=== PATIENT | female | born 1955 | race Caucasian/White ===

== ENCOUNTER 2017-01-25 13:40 | Emergency (ER) | payer SELFPAY ==
[2017-01-25] MEDS ORDERED: IPRATROPIUM/ALBUTEROL SULFATE 3 ML NEB NEB ONE (14:01)
[2017-01-25 14:03] VITALS: TEMP 97.4
--- NOTE | 2017-01-25 15:21 | DI ---
PA /LATERAL CHEST X-RAY, 01/25/2017 2:01 PM : Clinical History: Cough. Previous Exam: None at this facility. There is no acute soft tissue or bony abnormality. Heart size is normal. Lungs are clear. Mediastinal structures are normal. There are no pulmonary nodules. Reading: Normal chest x-ray.
[2017-01-25] MEDS ORDERED: ALBUTEROL SULFATE 5 MG/ML-20 ML BOTTLE NEB ONE (15:37)
[2017-01-25] MEDS ORDERED: ALBUTEROL SULFATE 2.5 MG/3 ML NEB ONE (15:39)
[2017-01-25 16:29] VITALS: RESP 18
--- NOTE | 2017-01-25 20:35 | PDOC ---
Upper Respiratory HPI - General Chief Complaint: Dyspnea Stated Complaint: cough, hoarseness, sore throat Date Seen by Provider: 01/25/17 Time Seen by Provider: 13:45 Source: POSITIVE: Patient Exam Limitations: POSITIVE: No limitations Nurse's Notes Reviewed & Considered: Yes - History of Present Illness Initial Comments: The patient is a 61-year-old female. She states that for the past week, approximately, she has had a mild sore throat. She's had a persistent cough productive of mucoid sputum. Some nasal congestion. She has a history of tobacco abuse her don't life and she smokes a half a pack of cigarettes per day. History of "early COPD". She is not on oxygen at home. She states she has in the past use beta agonist inhalers, but none for the past 4 years. No known fevers or chills. No chest pain. Timing: REPORTS: Constant Duration: <1 week (Approximately one week) Severity: Moderate Quality: REPORTS: Other (Mild sore throat; no chest pain) Context: DENIES: Recent Foreign Travel, Insect Bite, Tick Bite, Multiple Pt's w / Same Sx, Recent Chemotherapy, Other Modifying Factors: improves with: Coughing Associated Symptoms: REPORTS: Sore Throat, Hoarseness, Cough, Productive Cough, Shortness of Breath. DENIES: Fever, Chills, Sweating, Earache, Runny Nose, Sinus Pain, Sinus Drainage, Allergy, Hay Fever, Chest Pain, Bloody Cough, Hurts to Breathe, Headache, Other Similar Symptoms Previously: No Recently seen/treated/hospitalized: No Any Prior Injuries Related to Current Complaint?: No - Patient Home Medications Home Medications: Home Medications Albuterol 17 gm IH Q4H PRN #1 aer.refill 01/25/17 Aspirin [Aspir 81] 81 mg PO DAILY 01/25/17 Azithromycin [Zithromax Tri-Brian] 500 mg PO DAILY #5 tab 01/25/17 - Patient Allergies Allergies/Adverse Reactions: Allergies Allergy/AdvReac Type Severity Reaction Status Date / Time Sulfa (Sulfonamide Allergy HIVES Verified 01/25/17 13:49 Antibiotics) Past Medical History - heen HEENT History: Denies History Cardiovascular History: Denies History Respiratory History: Denies History Gastrointestinal History: Denies History Genitourinary History: Denies History Endocrine History: Denies History Musculoskeletal History: Denies History Prosthesis or Implant: No Neurological History: Denies History Blood Disorders: Denies History Psychiatric History: Denies History Female Reproductive History: Hysterectomy Additional Female Reproductive History: tubal ligation Obstetrical History: Denies History Cancer History: Denies History In Past Year Been Physically Harmed or Verbally Threatened: No History of MDRO: No Tobacco Use: Current Every Day Smoker Alcohol Use: None Substance Use Type: None Previous Surgical History: Yes Type / Date of Surgery: ingrown toenails, cone biopsy, hysterectomy, tubal ligation Anesthesia Reactions: No Malignant Hyperthermia: No Family History of Malignant Hyperthermia: No Significant Family History: Heart disease, Cancer, Lung disease Past Medical History Reviewed: Reviewed - No Changes ROS - Limitations ROS Limitations: No Limitations Constitution: REPORTS: Denies Symptoms Cardiovascular: REPORTS: Denies Cardiac Symptoms Respiratory: REPORTS: Cough Productive (Of mucoid sputum), Wheezing Neurological: REPORTS: Denies Neuro Symptoms Gastrointestinal: REPORTS: Denies GI Symptoms Endocrine: REPORTS: Denies Symptoms Musculoskeletal: REPORTS: Denies MS Symptoms Genitourinary: REPORTS: Denies Symptoms Eyes: REPORTS: Denies Symptoms ENT: REPORTS: Sore Throat Skin: REPORTS: Denies Skin Symptoms Lympathic: REPORTS: Denies Lympathic Symptoms Immunologic: POSITIVE: Denies Symptoms Psychiatric: POSITIVE: Denies Psych Symptoms Upper Respiratory/Fever Exam - General Appearance General Appearance: REPORTS: Alert, Cooperative, No Acute Distress, No Evidence of Trauma - HEENT HEENT: POSITIVE: Head Inspection Nml, Eyes Inspection Nml, Ears Inspection Nml, Nose Inspection Nml, Oral/Dental Inspect. Nml, Pharynx Inspect. Nml, PERRL, EOMI - Neck Neck: REPORTS: Normal Inspection, Supple - Respiratory Respiratory: REPORTS: No Respiratory Distress, No Pleuritic Chest Pain, Speaks Full Sentences, No Pain on Inspiration, Rhonchi. DENIES: Breath Sounds Normal ( Scattered rhonchi), Respiratory Distress, Fatigue, Wheezes, Rales, Prolonged Expirations, Accessory Muscle Use, Retractions, Splinting, Dull on Percussion, Decreased Air Movement, Chest Wall Tenderness, Speaks Broken Sentences, Stridor , Respiratory Failure - Abdomen Abdomen: Soft: (All Quadrants), Normal Bowel Sounds: (All Quadrants), Denies Tenderness: (All Quadrants), No Splenomegaly: (All Quadrants), No Hepatomegaly: (All Quadrants), No Guarding: (All Quadrants), No Rebound: (All Quadrants), No Palpable Pulse: (All Quadrants), No Palpabale Mass: (All Quadrants), No Distention: (All Quadrants), No Rigidity: (All Quadrants) - Cardiovascular Cardiovascular: REPORTS: Regular Rate and Rhythm, Heart Sounds Normal, Equal Pulses, Strong Pulses, No Murmur, No Gallop, No Friction Rub, No JVD Peripheral Pulses: Radial (R): 2+, Radial (L): 2+ - Skin Skin: REPORTS: Intact, Normal For Race, Warm, Dry, No Rash - Extremities Extremity: Non-Tender: (All Extremities), Normal ROM: (All Extremities), Normal Inspection: (All Extremities) - Neurological / Psychological Neurological: POSITIVE: Oriented X3, 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 - Patient's Progress Pain Medication Addressed: POSITIVE: Not Applicable School/Work Release Addressed: POSITIVE: Yes (Work excuse for 2 days given) Re-Examine Time: 15:45 Re-Examine Comment: Clearing of rhonchi with DuoNeb treatment Status: POSITIVE: Improved, Re-Examined Air Movement: Good Antibiotics Given: Yes (Zithromax) Nebulizer Treatment Given:: Yes (DuoNeb) - Consult Counseled: POSITIVE: Patient, RE: Lab Results, RE: Radiology Results, RE: DX, RE : Need for F/U RX Given: Yes (Zithromax and albuterol inhaler) Patient Care Time - Estimated PCT Patient Care Time (In Minutes): 30 Vital Signs - Recent Vital Signs Vital Signs: Vital Signs (Last 8 hours) Temp Pulse Pulse Resp BP Pulse Ox 01/25/17 16:05 80 18 96 01/25/17 13:40 97.4 F 84 16 126/84 94 - VS Reviewed Vital Signs Reviewed: Yes Discharge Clinical Impression: Bronchitis, Pharyngitis Discharge Disposition: Discharged to Home Condition: Fair Prescriptions / Orders: Albuterol 17 gm IH Q4H PRN #1 aer.refill PRN Reason: Wheezing Azithromycin [Zithromax Tri-Brian] 500 mg PO DAILY #5 tab Patient Instructions Given at Discharge: Acute Bronchitis (ED) Additional Instructions: It is very important that you stop smoking. Azithromycin 1 daily for 5 days. Albuterol inhaler, 2 inhalations every 4 hours as necessary. Work excuse for 2 days. Follow-up with your primary care provider. Return here as necessary. Follow Up With: NONE,NONE [Primary Care Provider] - (Instructions as above. Follow-up with your primary care provider. Return here as necessary.)
== END 2017-01-25 16:05 | disposition home or self-care (01) ==
LOC: ER 13:40
DX: J20.9 Acute bronchitis, unspecified (principal); R05 Cough; R06.2 Wheezing; J02.9 Acute pharyngitis, unspecified
CPT/HCPCS: 71020; 87802; 87804; 94640; 99283 ×2; J7620

== ENCOUNTER 2018-02-17 18:33 | Observation (INO) ==
[2018-02-17] MEDS ORDERED: NORMAL SALINE 10 ML SYRINGE FLUSH IVP PRN ×2 (18:46→22:07)
[2018-02-17] MEDS ORDERED: ONDANSETRON 4 MG/2 ML VIAL IVP ONE (18:46)
[2018-02-17] MEDS ORDERED: ASPIRIN 81 MG (BABY) CHEWABLE TABLET PO ONE (18:46)
[2018-02-17] MEDS ORDERED: MORPHINE SULFATE 2 MG/1 ML IVP ONE ×2 (18:46→20:53)
[2018-02-17] MEDS ORDERED: Sodium Chloride 0.9% 1,000 ML PRIMARY IV ONE (18:46)
[2018-02-17 19:04] LABS: BASOPHILS # (AUTO) 0.09 10*3/UL; BASOPHILS % (AUTO) 0.9 % (0-1); EOSINOPHILS # (AUTO) 0.71 10*3/UL; EOSINOPHILS % (AUTO) 6.8 % (0-8); Hematocrit [HCT] 47.6 % (37.0-47.0); LYMPHOCYTES # (AUTO) 2.47 10*3/uL; MEAN CORPUSCULAR HEMOGLOBIN 30.1 PG (27-31); MEAN CORPUSCULAR HGB CONC 33.6 g/dL (33-37); MEAN CORPUSCULAR VOLUME 89.5 FL (81-99); MEAN PLATELET VOLUME 11.9 FL (7.4-12.2); MONOCYTES % (AUTO) 8.6 % (5-15); NEUTROPHILS % (AUTO) 59.9 % (50-80); RED BLOOD COUNT 5.32 10^6/uL (4.20-5.40)
[2018-02-17 19:07] LABS: PLATELET MORPHOLOGY COMMENT NORMAL MORPHOLOGY (NORM); RBC MORPHOLOGY COMMENT NORMAL MORPHOLOGY (NORM); WBC MORPHOLOGY COMMENT NORMAL MORPHOLOGY (NORM)
[2018-02-17 19:19] LABS: BLOOD UREA NITROGEN 12 mg/dL (7-22); LIPASE 153 IU/L (23-300); SERUM ALBUMIN 4.2 g/dL (3.5-4.8)
[2018-02-17] MEDS ORDERED: KETOROLAC 15 MG/1 ML VIAL IVP ONE (19:23)
[2018-02-17] MEDS ORDERED: KETOROLAC 15 MG/1 ML VIAL ONE (19:25)
--- NOTE | 2018-02-17 19:55 | DI ---
AP CHEST X-RAY, 02/17/2018 6:46 PM : Clinical History: Chest pain. Previous Exam: 01/25/2017. There is no acute soft tissue or bony abnormality. Heart size is normal. The lungs are hyperinflated. There is no acute infiltrate or effusion. Mediastinal structures are normal. There are no pulmonary nodules. Reading: There is no acute infiltrate or effusion. The lungs are hyperinflated and on the previous exam, there was evidence of centrilobular emphysema.
[2018-02-17 20:13] LABS: BILIRUBIN,URINE NEGATIVE (NEG); CLARITY,URINE CLEAR (CLEAR); COLOR,URINE YELLOW (Y); GLUCOSE, URINE (UA) NEGATIVE (NEG); OCCULT BLOOD,URINE NEGATIVE (NEG); PH,URINE 5.5 (5.0-8.5); PROTEIN,URINE NEGATIVE (NEG); URINE SAMPLE TYPE VOIDED SPECIMEN; UROBILINOGEN,URINE 0.2 EU/dL (0.2)
--- NOTE | 2018-02-17 20:35 | DI ---
CT ANGIOGRAM OF THE CHEST, 02/17/2018 7:17 PM : Clinical History: Chest pain. Elevated D-dimer test. Previous Exam: None at this facility. Scans are performed from the base of the neck to the lower lung bases following IV administration of 95 mL of Isovue 300. Proprietary automated bolus tracking software was not used to verify the timing of the injection. The base of the neck and thoracic inlet are normal. There are no abnormal axillary, supraclavicular, mediastinal, or hilar nodes. The heart is normal. The pulmonary arteries are normal. There is no pulm onary arterial hypertension. There is no evidence of pulmonary embolism or pulmonary infarction. Ther e is no acute infiltrate or effusion. Small bullae are present throughout both lungs indicating the p atient has bullous emphysema without evidence of significant chronic interstitial pulmonary fibrosis. Both adrenal glands and the visualized portions of the liver, pancreas, and spleen are normal. READIN. Normal CTA of the chest. There are no pulmonary emboli or pulmonary infarcts. 2. Bullous emphysema. There is no evidence of overt chronic interstitial pulmonary fibrosis.
--- NOTE | 2018-02-17 20:54 | DI ---
CT ABDOMEN SCAN WITH IV CONTRAST, 02/17/2018 7:17 PM : Clinical History: Left-sided abdominal pain. Previous Exam: None at this facility. Scans are performed from the lower lung bases through the liver and kidneys with IV contrast. This is the same bolus of contrast used for the CT scan of the chest. No oral or rectal contrast was ordered . The lung bases are clear. The liver is normal. The gallbladder is grossly normal but there is dilatat ion of the common bile duct. The common bile duct measures 6-7 mm. There is no evidence of a mass in the head of the pancreas to explain the dilatation of the common bile duct. Both adrenal glands, the remainder of the pancreas, and the spleen are normal. The pancreatic duct measures 2 mm. Both kidneys are normal in size, shape, position and contour. There is no hydronephrosis or hydroureter. No renal or ureteral calculi are present. There are no abnormal retrocrural or periaortic nodes. No ascites i s present. READIN. The liver and gallbladder are normal but the common bile duct measures 6-7 mm indicating mild dil atation. There is no evidence of a pancreatic mass. 2. The remainder of the examination is normal. CT PELVIS SCAN WITH IV CONTRAST, 02/17/2018 7:17 PM: Clinical History: See above. Previous Exam: None at this facility. Scans are performed from just superior to the umbilicus to the symphysis pubis with IV contrast. This is the same bolus of contrast used for the CT scans of the abdomen. Scans through the lower abdomen and pelvis show no masses or abnormal fluid collections. There is no adenopathy. The appendix is normal. The small bowel, terminal ileum, and ileocecal valve are normal. The colon is also normal. There are no hernias. The patient is status post hysterectomy and bilateral salpingo-oophorectomy. READING: Normal CT scan of the pelvis.
--- NOTE | 2018-02-17 21:33 | EKG ---
[address] [address] Measurements Intervals [place] Rate: 86 P: 69 HI: 242 QRS: 81 QRSD: 93 T: 68 QT: 356 QTc: 399 Interpretive Statements SINUS RHYTHM WITH FIRST DEGREE AV BLOCK No previous ECG available for comparison Electronically Signed On 02-18-18 10:49:09 MDT by Faizan Garza [id number]
[2018-02-17] MEDS ORDERED: ONDANSETRON 4 MG/2 ML VIAL IVP PRN (22:07)
[2018-02-17] MEDS ORDERED: LIDOCAINE W/ SODIUM BICARB 0.5 ML SYR SUBD PRN (22:07)
[2018-02-17] MEDS ORDERED: CALCIUM CARBONATE 500 MG (TUMS) CHEWABLE TABLET PO PRN (22:07)
--- NOTE | 2018-02-17 22:16 | PDOC ---
HPI - History of Present Illness Date of Service: 02/17/18 Time of Service: 22:00 Chief Complaint: Pain in the left side lower chest upper abdomen is started today, pressure feeling in the anterior chest that goes to the back started also today. 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 In the ER she was given morphine, Toradol and aspirin and that's helped to relieve the pressure feeling in the chest but she continued to have some discomfort in the side of the abdomen lower chest, more in the flank area. Her pain is less than what it was but still there. She denied chest pain, nausea, pain going to the arm. She never had this feeling before. She denied other symptoms. She did also report that the pain in the flank area also happened last night but by the time she woke up this morning it was gone. Past Medical History Medical History: 1. History of breast abscess that was complicated by toxic shock syndrome many years ago Surgical History: 1. Hysterectomy. 2. Bunion surgery Pertinent Family History: Father from a heart attack, mother had a stroke and had peripheral vascular disease Tobacco Use: Current Every Day Smoker In the Past 12 Months, Have Used or Abuse Any of the Following Substance: None Alcohol Use: Rarely Medication / Allergies Home Medications: Home Medications 3 Medication Instructions Recorded Confirmed Type Aspirin [Aspir 81] 1 mg PO DAILY 11/24/17 12/15/17 History Allergies/Adverse Reactions: Allergies 3 Allergy/AdvReac Type Severity Reaction Status Date / Time Sulfa (Sulfonamide Allergy HIVES Verified 12/15/17 14:43 Antibiotics) Review of Systems - Review of Systems All Systems: Reviewed & No Additional Complaints Except as Stated Exam - Vitals Vital Signs: Vital Signs Height 5 ft 3 in Weight 144 lb - General General Appearance: No Acute Distress, Cooperative - Head Head Exam: Normal Inspection, Atraumatic - Eye Eye Exam: POSITIVE: Normal Appearance - ENT ENT Exam: POSITIVE: Normal Exam - Neck Neck Exam: Normal Inspection - Respiratory Respiratory Exam: POSITIVE: Clear to Auscultation - Bilaterally - Cardiovascular Cardiovascular Exam: POSITIVE: RRR - GI/Abdominal GI/Abdominal Exam: POSITIVE: Normal Bowel Sounds, Non Tender, Non Distended, Soft, No Organomegaly - Rectal Rectal Exam: POSITIVE: Deferred - External Exam: POSITIVE: Deferred - Extremities Extremities Exam: POSITIVE: Normal Inspection - Back Back Exam: POSITIVE: Normal Inspection - Neurological Neurological Exam: POSITIVE: Alert, Oriented x 3, CN II-XII Intact, Moves All Extremities Equally - Psychiatric Psychiatric Exam: POSITIVE: Normal Affect - Integumentary Integumentary Exam: POSITIVE: Normal Color Results - Labs CBC and BMP: 02/17/18 19:01 02/18/18 06:55 - EKG Data -: EKG Interpreted by Me (No significant EKG changes noted) Rate: Normal - EKG Data EKG Interpretation: Other (No significant EKG changes noted. First-degree AV block.) - Imaging Status: Report Reviewed by Me (CTA 1. Normal CTA of the chest. There are no pulmonary emboli or pulmonary infarcts. 2. Bullous emphysema. There is no evidence of overt chronic interstitial pulmonary fibrosis. Abdomen CT 1. The liver and gallbladder are normal but the common bile duct measures 6-7 mm indicating mild dilatation. There is no evidence of a pancreatic mass.) Assessment and Plan - Patient Problems (1) Chest pressure Current Visit: Yes Status: Acute Comment: Because of her history of smoking and positive family history for coronary artery disease I think we'll rule her out and will order stress test for tomorrow. Her blood pressure was elevated when she came in, never been told that she has high blood pressure of think will watch her blood pressure and then will decide if need to be on treatment Code(s): R07.89 - Other chest pain (2) Left flank pain Current Visit: Yes Status: Acute Comment: Unclear reason, looks musculoskeletal. Will write for pain medications for her. Code(s): R10.9 - Unspecified abdominal pain (3) Common bile duct dilatation Current Visit: Yes Status: Acute Comment: I did mention to her the common bile duct is somewhat dilated sometimes this is considered normal. I did tell her this probably need this to be watched as an outpatient with repeat ultrasound and liver tests. Code(s): K83.8 - Other specified diseases of biliary tract
[2018-02-17] MEDS ORDERED: ACETAMINOPHEN 325 MG TABLET PO PRN (22:20)
[2018-02-17] MEDS ORDERED: MORPHINE SULFATE 2 MG/1 ML IVP PRN (22:31)
[2018-02-17] MEDS ORDERED: oxyCODONE/APAP 7.5/325 Tab 1 TAB TAB PO PRN (22:31)
--- NOTE | 2018-02-17 23:24 | PDOC ---
Chest Pain HPI - General Chief Complaint: Chest Pain Stated Complaint: chest pain Date Seen by Provider: 02/17/18 Time Seen by Provider: 18:45 Source: Patient Exam Limitations: POSITIVE: No limitations Treatment Prior to Arrival: REPORTS: None Nurse's Notes Reviewed & Considered: Yes - History of Present Illness Initial Comments: The patient is a 62-year-old female who presents to the emergency department with complaints of chest pain. She states that sometime last night she had pain that started in her left flank/left lower posterior chest. The pain seemed to improve enough that she was able to finally go to sleep. She was able to work today however at work the pain started to intensify the more she was moving around. She decided to come here to the emergency department. On the drive here she started to develop pain that also radiated up between her shoulder blades and up into her chest. She has some associated nausea however has not had any vomiting. She denies any increase shortness of breath. She does not have any known history of heart problems. She has not been diagnosed with hypertension, diabetes or hyperlipidemia. She does smoke. Her dad had heart disease and in his 70s from a heart attack. She denies any abdominal pain, urinary symptoms, fevers or chills, recent cough or trauma, pain or swelling in her legs. She states she did have a history of a blood clot when she was 40+ years ago. - Patient Home Medications Home Medications: Home Medications Aspirin [Aspir 81] 1 mg PO DAILY 11/24/17 - Patient Allergies Allergies/Adverse Reactions: Allergies 3 Allergy/AdvReac Type Severity Reaction Status Date / Time Sulfa (Sulfonamide Allergy HIVES Verified 12/15/17 14:43 Antibiotics) Past Medical History - heen HEENT History: Cataracts, Dentures/Partials Additional HEENT History: Upper denture Cardiovascular History: Other (please comment) Additional Cardiovasular History: MITRAL VALVE PROLAPSE Respiratory History: COPD, Other (please comment) Additional Respiratory History: BRONCHITIS 2017. PHARYNGITIS. Smokers cough Gastrointestinal History: GERD, Irritable Bowel Syndrome Genitourinary History: Denies History Endocrine History: Denies History Musculoskeletal History: Arthritis, Back Pain Prosthesis or Implant: No Neurological History: Other (please comment) Additional Neurological History: Migraines until got her hyst then none Blood Disorders: Denies History Psychiatric History: Depression History of Sexually Transmitted Diseases: No Cancer History: Denies History In Past Year Been Physically Harmed or Verbally Threatened: No History of MDRO: No History of Other Communicable Diseases: No Tobacco Use: Current Every Day Smoker Alcohol Use: None In the Past 12 Months, Have Used or Abuse Any Substance: None Previous Surgical History: Yes Type / Date of Surgery: ingrown toenails, cone biopsy, total hysterectomy, tubal ligation/R breast abscess/exploratory lap. Anesthesia Reactions: No Malignant Hyperthermia: No Significant Family History: Heart disease, Cancer, Lung disease Past Medical History Reviewed: Reviewed - No Changes ROS - Limitations ROS Limitations: No Limitations Constitution: DENIES: Chills, Fever Cardiovascular: REPORTS: Chest Pain. DENIES: Heart Palpitations, Edema Respiratory: REPORTS: Cough Non Productive. DENIES: Cough Productive, Hurts To Breathe, Shortness Of Breath Neurological: REPORTS: Denies Neuro Symptoms Gastrointestinal: REPORTS: Nausea. DENIES: Abdominal Pain, Vomitting Musculoskeletal: DENIES: Calf Pain, Lower Extremity Swelling Genitourinary: DENIES: Dysuria, Hematuria, Difficulty Urinating Eyes: REPORTS: Denies Symptoms ENT: REPORTS: Denies Symptoms Skin: DENIES: Rash Chest Pain PE - HEENT HEENT: POSITIVE: Head Inspection Nml, Eyes Inspection Nml, Ears Inspection Nml, Nose Inspection Nml, Pharynx Inspect. Nml - Neck Neck: REPORTS: Normal Inspection. 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 CTA of the chest reveals no evidence of PE, emphysematous changes with no other acute findings per radiologist. CT scan of the abdomen and pelvis reveals a common bile duct which is slightly enlarged at 6-7 mm, no other acute findings per radiologist. Lab Results Reviewed by Me: Yes CBC and BMP: 02/17/18 19:01 02/17/18 19:01 EKG Interpreted/Reviewed By Me:: Yes EKG Interpretation:: POSITIVE: Normal Sinus Rhythm, Normal Rate, Normal QRS, Normal ST/T - Patient's Progress MDM / ED Course: The patient was somewhat hypertensive on arrival. Her initial EKG shows normal sinus rhythm with no acute ST segment or T-wave changes. She was given aspirin per chest pain protocol as well as morphine 2 mg IV and Zofran 4 mg IV. She had improvement in her chest pain and pain between her shoulder blades however continued to have left flank pain. She was given Toradol 15 mg IV with very little improvement. Her initial blood work was unremarkable with normal troponin however her d-dimer was slightly elevated. She underwent CTA of the chest which was negative for PE and showed emphysematous changes with no other acute findings per radiologist. Because of her pain extending down into the left flank area she also had a CT of the abdomen and pelvis with IV contrast which showed a mildly dilated common bile duct at 6-7 mm with no other acute intra-abdominal findings per radiologist. The patient's liver enzymes and pancreas enzymes were normal. The patient's chest pain seems to have resolved at this point she has continued pain in her left side. She is a smoker and her blood pressure was fairly elevated on arrival. Decision was made to admit for further cardiac monitoring and rule out. These findings and recommendations were discussed with the patient and she is in agreement with this plan. Dr. Michele was contacted and has agreed to admit the patient for further evaluation and treatment. - Consult Counseled: POSITIVE: Patient, Family, RE: Lab Results, RE: Radiology Results, RE : DX, RE: Need for F/U Patient Care Time - Estimated PCT Patient Care Time (In Minutes): 40 Vital Signs - Recent Vital Signs Vital Signs: Vital Signs (Last 8 hours) Temp Pulse Pulse Resp BP Pulse Ox 02/17/18 21:21 97.8 F 92 18 159/103 96 02/17/18 18:46 97.8 F 92 96 18 159/103 96 - VS Reviewed Vital Signs Reviewed: Yes Discharge Clinical Impression: Chest pain, Left flank pain Discharge Disposition: Admit to Observation Condition: Fair
[2018-02-18 07:12] LABS: BLOOD UREA NITROGEN 13 mg/dL (7-22); BUN/CREATININE RATIO 18.57 (6-20); SERUM ALBUMIN 3.5 g/dL (3.5-4.8)
[2018-02-18 07:24] LABS: CHOL/HDL RATIO 4.15 RATIO (0-4.0)
--- NOTE | 2018-02-18 08:27 | PDOC(PROG) ---
Date and Time of Service: 02/18/2018 8:26 AM Interval History: Subjective Patient feels better today. She is denying chest pain, denying left flank pain. Though her screening for depression scored high she denied suicidal ideation. She does not want to see a counselor and she thinks that she can deal with her depressive symptoms. Objective : Data - Labs CBC and BMP: 02/17/18 19:01 02/18/18 06:55 Objective : Exam - General General Appearance: No Acute Distress, Cooperative - Head Head Exam: Normal Inspection - Eye Eye Exam: Normal Appearance - ENT ENT Exam: Normal Exam - Neck Neck Exam: Normal Inspection - Respiratory Respiratory Exam: Clear to Auscultation - Bilaterally - Cardiovascular Cardiovascular Exam: RRR - GI/Abdominal GI/Abdominal Exam: Normal Bowel Sounds, Non Tender, Non Distended, Soft, No Organomegaly - Rectal Rectal Exam: Deferred - External Exam: Deferred - Extremities Extremities Exam: Normal Inspection - Back Back Exam: Normal Inspection - Neurological Neurological Exam: Alert, Oriented x 3, CN II-XII Intact, Speech Intact / Clear , Moves All Extremities Equally - Psychiatric Psychiatric Exam: Normal Affect - Integumentary Integumentary Exam: Normal Color Assessment and Plan - Patient Problems (1) Chest pressure Current Visit: Yes Status: Acute Comment: This is resolved. Enzymes are negative, the plan is to have the resting image today and the stress test tomorrow. Code(s): R07.89 - Other chest pain (2) Left flank pain Current Visit: Yes Status: Acute Comment: This is resolved, need to be followed up as an outpatient. Code(s): R10.9 - Unspecified abdominal pain (3) Common bile duct dilatation Current Visit: Yes Status: Acute Comment: This need follow-up as an outpatient. Code(s): K83.8 - Other specified diseases of biliary tract
[2018-02-18] MEDS: ASPIRIN 325 MG EC TABLET PO SCH (10:00)
--- NOTE | 2018-02-19 08:02 | STRESSTEST ---
[facility] Interpretive Statements Patient had lexiscan stress test per protocol, baseline BP was 126/84, heart rate was 56, baseline EKG showed sinus bradycardia with first degree AV block, post injection patient did have some chest pain that resolved in the recovery phase. Maximum BP was 142/.76, maximum heart rate was 109, No significant EKG changes noted., Conclusion No significant EKG changes noted. await images. [email or web address]
[2018-02-19] MEDS: ASPIRIN 325 MG EC TABLET PO SCH (08:40)
[2018-02-19 12:43] VITALS: BP 136/70; RESP 18; TEMP 97; O2SAT 96
--- NOTE | 2018-02-19 13:25 | DCSUMMARY ---
Hospitalization Summary Admit Date: 02/17/2018 Discharge Date: 02/19/18 Hospital Course: Discharge diagnoses 1. Episode of chest pain resolved, enzymes negative stress test negative 2. Pain in the flank on the left side looks musculoskeletal 3. Hypertension 4. Smoking 5. 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 In the ER she was given morphine, Toradol and aspirin and that's helped to relieve the pressure feeling in the chest but she continued to have some discomfort in the side of the abdomen lower chest, more in the flank area. Her pain is less than what it was but still there when I saw her. She denied chest pain, nausea, pain going to the arm when she came up to the floor. She never had this feeling before. She denied other symptoms. She did also report that the pain in the flank area also happened last night but by the time she woke up this morning it was gone. Patient was admitted the to the hospital we did repeat her enzymes and they were negative. There was no EKG changes. We did a nuclear stress test because of the episode of chest pain that she had and per my discussion with Dr. Wolff there was no evidence of reversible ischemia. There is some calcium deposits in the vessels. We did note also her blood pressure was elevated when she came in and we had different readings at different times also showed elevated blood pressure. I did discuss with her the fact that she has hypertension and we decided to start her on a low dosage of Norvasc I did tell her to write her blood pressure numbers and she need follow-up with primary to see her response to treatment. For the pain in the flank area looks like musculoskeletal pain suggested some anti-inflammatory. When she came in I did also discuss with her there is some dilated common duct on the CT this need follow-up as an outpatient. Her liver tests were normal and repeated remain negative. Discharge instruction Diet low-salt Activity as started Medications Current Medication(s) 3 Medication Instructions Recorded Confirmed Type Aspirin [Aspir 81] 1 mg PO DAILY 11/24/17 12/15/17 History Amlodipine Besylate 2.5 mg PO DAILY #30 tab 02/19/18 Rx Ibuprofen [Motrin] 400 mg PO Q6H PRN #1 tab 02/19/18 Rx Follow-up with PCP in 1-2 weeks Condition at discharge was stable for discharge Exam - Vitals Vital Signs: Vital Signs Temperature 97 F Temperature Source Temporal Artery Scan Pulse Rate [Pulse Oximeter] 67 Pulse Rate 55 Respiratory Rate 18 Blood Pressure [Left Arm] 168/108 Blood Pressure [Right Arm] 136/70 Pulse Ox 96 Oxygen Delivery Method Room Air Height 5 ft 3 in Weight 144 lb - General General Appearance: No Acute Distress, Cooperative - Head Head Exam: Normal Inspection - Eye Eye Exam: POSITIVE: Normal Appearance - ENT ENT Exam: POSITIVE: Normal Exam - Neck Neck Exam: Normal Inspection - Respiratory Respiratory Exam: POSITIVE: Clear to Auscultation - Bilaterally - Cardiovascular Cardiovascular Exam: POSITIVE: RRR - GI/Abdominal GI/Abdominal Exam: POSITIVE: Normal Bowel Sounds, Non Tender, Non Distended, Soft, No Organomegaly - Rectal Rectal Exam: POSITIVE: Deferred - External Exam: POSITIVE: Deferred - Extremities Extremities Exam: POSITIVE: Normal Inspection - Back Back Exam: POSITIVE: Normal Inspection - Neurological Neurological Exam: POSITIVE: Alert, Oriented x 3, CN II-XII Intact - Psychiatric Psychiatric Exam: POSITIVE: Normal Affect - Integumentary Integumentary Exam: POSITIVE: Normal Color Patient Problems - Patient Problem List (1) Chest pressure Status: Acute Code(s): R07.89 - Other chest pain Category: Medical (2) Left flank pain Status: Acute Code(s): R10.9 - Unspecified abdominal pain Category: Medical (3) Common bile duct dilatation Status: Acute Code(s): K83.8 - Other specified diseases of biliary tract Category: Medical
--- NOTE | 2018-02-19 14:19 | DI ---
2 DAY LEXISCAN STRESS & REST MYOCARDIAL PERFUSION SCANS, 02/18/2018-02/19/2018: Clinical History: Chest pain. Previous Exam: None at this facility. Monitoring Physician: Dr. Carlie Michele. Dose: Stress dose: 37 mCi on 02/19/2018. Rest dose: 37 mCi on 02/18/2017. Quantitative Analysis: [employer] program with low dose limited CT chest scan attenuation correctio n. Exam Quality: Excellent. Rejected Beats: Stress = 0%; Rest = 0%. HR: Stress = 50-57 b/m; Rest = 62-7 0 b/m. Left ventricular chamber sizes are normal at stress and rest. Transient ischemic dilatation ratio is 1.24 (normal Bob TID <= 1.22; normal Lexiscan TID <= 1.33). Stress LVEF: 78%; rest LVEF: 90%. The a ttenuated corrected scans show a small area of reversibility in the apex but this is rated as statist ically not significant when compared to the store database. All other beasley show normal perfusion at stress and rest on the attenuated corrected scans. The non-attenuated corrected scans show normal str ess and rest perfusion. There is normal stress and rest myocardial wall motion and thickening. Limite d CT scans of the heart faint calcifications in the LAD and right coronary artery. There are no lung nodules or enlarged nodes. Readin. Normal stress and rest left ventricular chamber size. Transient ischemic dilatation ratio is norm al at 1.24. 2. Normal stress and rest LVEF values of 78% and 90%, respectively. There was sinus bradycardia duri ng the stress scans and the heart rate varied between 50-57. 3. Normal stress and rest myocardial perfusion, wall motion, and thickening. 4. Faint calcifications are present in the proximal LAD and in the right coronary artery. No lung no dules or adenopathy is identified.
== END 2018-02-19 13:52 | disposition home or self-care (01) ==
LOC: MED/SURG 18:33 → ER 18:33 → MED/SURG 21:27
PROVIDERS: ADMIT Internal Medicine; ATTEND Internal Medicine